=== PATIENT | female | born 1965 | race Caucasian/White ===

== ENCOUNTER 2018-08-13 05:51 | Day surgery (SDC) | payer MEDICARE ==
[2018-08-13] VITALS (7 sets, daily range): BP systolic 100–131; BP diastolic 60–76
[~2018-08-13] VITALS: Ht 160 cm; Wt 76.2 kg
[~2018-08-13 05:51] MED LIST: ALBU83IN INH; ASPI81TA85 PO; ATOR1TAB21 PO; BUPR150T3 PO; BUSP15TA47 PO; COMBAER6 INH; CYCL10TA PO; GABA600T4 PO; IMIT50TA PO; NITR0.4S14 SL; NORV5TAB PO; OMEP40CA2 PO; OXYC10TA3 PO; ZONI25CA2 PO
[2018-08-13] MEDS ORDERED: LIDOCAINE 1% MDV 20ML VIAL SQ PRN (06:00)
[2018-08-13] MEDS ORDERED: LR 1,000 ML IV ONE (06:15)
[2018-08-13] MEDS ORDERED: SCOPOLAMINE 1MG TRANSDERMAL PATCH TOP ONE (07:15)
[2018-08-13] MEDS ORDERED: ROCURONIUM BROMIDE 50 MG/5 ML VIAL As Ordered ONE ×2 (07:17→08:47)
[2018-08-13] MEDS ORDERED: LIDOCAINE 2% INJ 100 MG/5 ML SDV (FOR ANES.) As Ordered ONE ×2 (07:17→09:56)
[2018-08-13] MEDS ORDERED: PROPOFOL 200 MG/20 ML VIAL As Ordered ONE ×4 (07:17→10:58)
[2018-08-13] MEDS ORDERED: BACITRACIN PWD 50,000 UNITS VIAL As Ordered ONE (07:18)
[2018-08-13] MEDS ORDERED: MIDAZOLAM INJ 2 MG/2 ML VIAL (J2250) As Ordered ONE (07:18)
[2018-08-13] MEDS ORDERED: fentaNYL 100 MCG/2 ML INJECTION (J3010) As Ordered ONE ×4 (07:18→11:51)
[2018-08-13] MEDS ORDERED: dexameTHASONE 4 MG/ML 1ML VIAL (J1100) As Ordered ONE ×2 (07:18→07:58)
[2018-08-13] MEDS ORDERED: METOCLOPRAMIDE INJ 10MG/2ML VIAL (J2765) As Ordered ONE (07:58)
[2018-08-13] MEDS ORDERED: BUPIVACAINE LIPOSOME/PF 1.3% 20ML VIAL (13.3MG/ML)(EXPAREL)(C9290 PER1MG) As Ordered ONE (08:58)
[2018-08-13] MEDS ORDERED: ACETAMINOPHEN 1000MG 100ML IV BTL (OFIRMEV) (J0131 PER 10MG) As Ordered ONE (09:56)
[2018-08-13] MEDS ORDERED: KETOROLAC 60 MG/2 ML VIAL (J1885) As Ordered ONE (09:56)
[2018-08-13] MEDS ORDERED: ONDANSETRON 4MG/2ML VIAL (J2405) As Ordered ONE (10:00)
[2018-08-13] MEDS ORDERED: SUGAMMADEX SODIUM 500 MG/5 ML VIAL (BRIDION) As Ordered ONE (10:04)
--- NOTE | 2018-08-13 11:13 | POST-OPPD ---
Postoperative Procedure Note Date Of Procedure: Aug 13, 2018 PREOPERATIVE DIAGNOSIS: Symptomatic macromastia POSTOPERATIVE DIAGNOSIS: same FINDINGS: Large breasts PROCEDURE: Bilateral breast reduction SURGEON: Dr Haji ANESTHESIA: General SPECIMENS: Right breast 456gm, left breast 406gm ESTIMATED BLOOD LOSS: 100cc REPLACED: none DRAINS: 10 mm BETSY drains x 2 COMPLICATIONS: none POSTOPERATIVE CONDITION: stable Dict: [id number] RASTA HAJI DO Aug 13, 2018 11:13
[2018-08-13] MEDS ORDERED: PERCOCET 5MG/325MG TAB As Ordered ONE (11:51)
[2018-08-13] MEDS: fentaNYL 100 MCG/2 ML INJECTION (J3010) IV PRN ×4 (11:55→12:27)
[2018-08-13] MEDS: PERCOCET 5MG/325MG TAB PO PRN ×2 (11:55→22:57)
[2018-08-13] MEDS ORDERED: ONDANSETRON 4MG/2ML VIAL (J2405) IV PRN ×2 (12:00→12:45)
[2018-08-13] MEDS ORDERED: NORCO, ANEXSIA 5/325MG TABLET (HYDROcodone/ACETAMINOPHEN) PO PRN (12:00)
[2018-08-13] MEDS ORDERED: LR 1,000 ML IV SCH (12:00)
[2018-08-13] MEDS ORDERED: MORPHINE 4 MG/ML 1ML VIAL/SYRINGE (J2270) IV PRN (12:45)
[2018-08-13] MEDS: LR 1,000 ML IV SCH ×2 (13:30→22:57)
[2018-08-13] MEDS ORDERED: ZONISAMIDE 50 MG CAP (ZONEGRAN) PO SCH (21:00)
[2018-08-14 02:00] VITALS: BP 99/61
[2018-08-14] MEDS: PERCOCET 5MG/325MG TAB PO PRN (05:32)
[2018-08-14 06:00] VITALS: BP 103/66
--- NOTE | 2018-08-14 08:49 | IPNPDOC ---
Subjective General Date/Time Seen The patient was seen on 08/14/18 at 08:45. Subject Chief Complaint/History The patient is a 53-year-old female admitted with a reason for visit of Bilateral Breast Hypertrophy. POD 1. Doing well, pain controlled. No complains. No nausea, vomiting. Tolerating diet. Current Medications Current Medications Current Medications Acetaminophen/ Hydrocodone Bitart (Sorrento, Anexsia 5/325) 1 tab ASDIRECTED PRN PO MILD/MODERATE PAIN (PS 1-7); Start 08/13/18 at 12:00; Stop 08/13/18 at 13:00; Status DC Amlodipine Besylate (Norvasc) 5 mg DAILY PO ; Start 08/14/18 at 09:00 Fentanyl Citrate (Sublimaze) 25 mcg Q5MP PRN IV MODERATE PAIN (PS 4-7) Last administered on 08/13/18at 12:27; Start 08/13/18 at 12:00; Stop 08/13/18 at 12:28; Status DC Lactated Ringer's 1,000 ml @ 75 mls/hr [id number] IV ; Start 08/13/18 at 12:00; Stop 08/13/18 at 13:00; Status DC Lactated Ringer's 1,000 ml @ 75 mls/hr [id number] IV Last administered on 08/13/18at 22:57; Start 08/13/18 at 12:30 Lidocaine HCl (LIDOCAINE 1% MDV 20ml) 0.1 ml ONCE PRN SQ DISCOMFORT BEFORE IV START; Start 08/13/18 at 06:00; Stop 08/13/18 at 11:56; Status DC Morphine Sulfate (Morphine Sulfate Inj) 4 mg Q4HP PRN IV SEVERE PAIN Last administered on 08/13/18at 17:13; Start 08/13/18 at 12:45 Ondansetron HCl (ZOFRAN INJection) 4 mg Q4HP PRN IV NAUSEA OR VOMITING; Start 08/13/18 at 12:00; Stop 08/13/18 at 13:00; Status DC Ondansetron HCl (ZOFRAN INJection) 4 mg Q4HP PRN IV NAUSEA OR VOMITING; Start 08/13/18 at 12:45 Oxycodone/ Acetaminophen (Percocet 5mg/ 325mg Tablet) 2 tab Q6HP PRN PO MILD PAIN Last administered on 08/14/18at 05:32; Start 08/13/18 at 12:30 Zonisamide (Zonegran) 50 mg BID PO Last administered on 08/13/18at 19:57; Start 08/13/18 at 21:00 Allergies Coded Allergies: baclofen (Verified Allergy, Severe, tongue swelling, 08/07/18) Objective Physical Examination Examination GENERAL APPEARANCE:Patient seen, laying in bed, awake, alert, and oriented. Comfortable, in no acute distress. SKIN: Warm and moist. Breast: soft NT. Post op ecchymosis, non expanding. Incisions intact. BETSY drains serosanguinous. HEENT: Normocephalic, atraumatic. Omega palpebral conjunctiva, anicteric sclerae. Lips and mucosa appear moist. NECK: Supple, no thyromegaly. No obvious jugular venous distention. LUNGS: Clear to auscultation bilaterally. No wheezing appreciated. Vital Signs Vital Signs Date Time Temp Pulse Resp B/P (MAP) Pulse Ox O2 Delivery O2 Flow Rate FiO2 08/14/18 06:02 18 08/14/18 06:00 98.1 103/66 (78) 08/14/18 02:00 82 97 I&Os I&O- Last 24 Hours up to 6 AM 08/14/18 06:00 Intake Total 5600 ml Output Total 2157 ml Balance 3443 ml Impression Symptomatic macromastia. S/p BBR. Doing well Pain controlled Stable for discharge Instructions given, dressing changed Keep bra on. Monitor BETSY drains. F/up plastic surgery Friday Plan / VTE VTE Prophylaxis Ordered?: Yes RASTA HAJI DO Aug 14, 2018 08:49
[2018-08-14] MEDS ORDERED: PERCOCET PO (08:56)
[2018-08-14] MEDS ORDERED: amLODIPine 5 MG TAB PO SCH (09:00)
--- NOTE | 2018-08-15 09:56 | RO ---
DATE OF PROCEDURE: 08/13/2018 PREPROCEDURE DIAGNOSIS: Symptomatic macromastia POSTPROCEDURE DIAGNOSIS: Symptomatic macromastia. PROCEDURE: Bilateral breast reduction. SURGEON: Alaina Fischer DO ANESTHESIA: General. SPECIMENS SENT: Right breast 456 grams, left breast 406 grams. BLOOD LOSS: 100 mL. Two 10 mm Yohannes-Messer drains. INDICATIONS AND DESCRIPTION OF PROCEDURE: This is a 53-year-old female who was seen in our office with upper and middle back pain. The patient is a pain management patient who is having chronic back changes and back pain. She is here to have her breasts reduced. The lift test is revealing improvement with upper back pain when she lifts her breasts, so she is scheduled for bilateral breast reduction. All the risks and benefits and alternatives discussed with the patient at length, and she is ready to proceed. On the day of surgery, she was marked in the upright position. Her nipple areolar complex to the sternal notch on the left is 32, on the right is 30. Left feels less full but bigger in size breast and the right is more dense. The new inframammary place is going to be at 21 cm from sternal notch. Then, the patient was brought into the operating room, placed in supine position. Preoperative antibiotics were given. Sequentials placed on the lower calves and general anesthesia was induced. She was prepped and draped in the usual sterile fashion. We started the procedure on the right side. The nipple areolar complex was outlined at 45 mm in diameter and then incision was carried out using 10 blade. The pedicle is designed along superomedial pattern so the inferolateral portion of the breast was resected using electrocautery. Hemostasis was obtained as we went along. Then, the pedicle was de-epithelialized using Bower scissors, and then it was turned superiorly to its new location with the nipple areolar complex at 21 cm from sternal notch. The new mound was recreated. The pillars were closed in layers, and the mound was reinforced with #0 Vicryl sutures. The vertical limb is at 8 cm. Excess tissue was then measured and resected creating horizontal scar, which was continuously closed with interrupted #3-0 Monocryl sutures inverted. 10 mm Yohannes-Messer drain was placed through the lateral portion of this horizontal incision and sutured in place. Nipple areolar complex was set in with layered closures of #3-0 Monocryl and #4-0 Monocryl sutures and a running #5-0 plain gut suture. Then, we turned our attention to the left side. Left breast slightly larger but less dense. Again, the nipple areolar complex was outlined at 45 mm in diameter and then resection started along the superomedial pedicle pattern. Inferolateral portion of the breast was resected using electrocautery. Hemostasis was obtained. The pedicle was de-epithelialized using Bower scissors and then turned superiorly to its new location at 21 cm from the sternal notch. The mound was re-created and pillars were started to close with #3-0 Monocryl sutures. The mound was reinforced with #0 Vicryl sutures as well, and the vertical limb of the pillar was 8 cm mirroring the right side, and excess tissue was measured and resected creating the horizontal incision. 10 mm Yohannes-Messer drain was placed through the lateral portion of that horizontal incision, sutured in place. Nipple areolar complex was fit in in layers with #3-0 and #4-0 Monocryl sutures as well as the running #5-0 plain. Total 15 cc of Exparel used for pain management. Good symmetry was achieved and Prineo dressing was applied to the vertical and horizontal incisions, and Xeroform was applied to nipple areolar complex with bulky dressing and a surgical support bra. The patient was extubated in the operating room without any difficulties, transferred to the recovery room in stable condition. KENNETH
== END 2018-08-14 09:55 | disposition home or self-care (01) ==
LOC: M SDC 05:51 → M MS5PR 13:25 → M SDC 08-14 09:55
PROVIDERS: ATTEND Plastic Surgery Surgery of the Hand
DX: N62 Hypertrophy of breast (principal); M54.2 Cervicalgia; M54.5 Low back pain; F17.210 Nicotine dependence, cigarettes, uncomplicated; F32.9 Major depressive disorder, single episode, unspecified; F41.9 Anxiety disorder, unspecified; I10 Essential (primary) hypertension; K21.9 Gastro-esophageal reflux disease without esophagitis; J45.909 Unspecified asthma, uncomplicated; Z79.51 Long term (current) use of inhaled steroids; Z79.82 Long term (current) use of aspirin; Z79.899 Other long term (current) drug therapy
CPT/HCPCS: 19318; 88305; 96374; C9290; G0378; J0131; J0690; J1100; J1885; J2250; J2270; J2405; J2765; J3010

== ENCOUNTER → 2019-06-23 | Outpatient (CLI) | payer MEDICARE ==
[~2019-06-23] MED LIST changes: +CYCL-707 PO; -CYCL10TA PO; -OMEP40CA2 PO; +OMEP40CA97 PO; +PERCOCET PO; +ZONI25CA13 PO; -ZONI25CA2 PO
== END ==
LOC: M LABSMTC 13:42
PROVIDERS: ATTEND Family Medicine
DX: Z11.59 Encounter for screening for other viral diseases (principal); Z20.828 Contact with and (suspected) exposure to other viral communicable diseases

== ENCOUNTER → 2022-10-24 | Outpatient (CLI) | payer MEDICAID, MEDICARE ==
[~2022-10-24] MED LIST changes: +ALBU2.5V10 INH; -ALBU83IN INH; -ASPI81TA85 PO; +ASPI81TA86 PO; +BUPR150T12 PO; -BUPR150T3 PO; +OMEP40CA4 PO; -OMEP40CA97 PO
== END ==
LOC: M PLAIMG 15:48
PROVIDERS: ATTEND Pain Medicine Interventional Pain Medicine
DX: M54.16 Radiculopathy, lumbar region (principal); M51.27 Other intervertebral disc displacement, lumbosacral region

== ENCOUNTER → 2023-01-01 | Outpatient (CLI) | payer MEDICARE | LOC: M PLAIMG 08:26 | PROVIDERS: ATTEND Physician Assistant Medical | DX: R22.1 Localized swelling, mass and lump, neck (principal) ==

== ENCOUNTER → 2023-01-30 | Outpatient (CLI) | payer MEDICARE ==
[~2023-01-30] MED LIST changes: +ISOVUE-370 76% 100ML VIAL ONE
== END ==
LOC: M PLAIMG 10:00
PROVIDERS: ATTEND Family Medicine
DX: R91.1 Solitary pulmonary nodule (principal)
CPT/HCPCS: 71270; Q9967

== ENCOUNTER → 2023-08-12 | Outpatient (REF) | payer MEDICARE ==
[~2023-08-12] MED LIST changes: -ISOVUE-370 76% 100ML VIAL ONE
[2023-08-12 14:19] LABS: C REACTIVE PROTEIN QUANTITATIV < 0.40 MG/DL (<1.0)
[2023-08-12 14:20] LABS: RHEUMATOID FACTOR QUANT 5.2 IU/ML (<14)
[2023-08-13 18:07] LABS: ANA PATTERN Nuclear, Speckled (NEGATIVE); ANA SCREEN, IFA POSITIVE (NEGATIVE); ANA TITER 1:40 titer (<1:40)
[2023-08-13 23:32] LABS: RNP ANTIBODY <1.0 NEG AI (<1.0 NEG); SM ANTIBODY <1.0 NEG AI (<1.0 NEG); SSA SJOGRENS A <1.0 NEG AI (<1.0 NEG); SSB SJOGRENS B <1.0 NEG AI (<1.0 NEG)
[2023-08-16 00:08] LABS: CYCLIC CITRULLINATED PEPTIDE < 16 UNITS (<20)
== END ==
LOC: M LABDRWAD 12:36
PROVIDERS: ATTEND Internal Medicine Pulmonary Disease
DX: R91.8 Other nonspecific abnormal finding of lung field (principal)

== ENCOUNTER → 2023-08-27 | Outpatient (CLI) | payer OTHER | LOC: M RAD 10:26 | PROVIDERS: ATTEND Internal Medicine Pulmonary Disease | DX: R91.8 Other nonspecific abnormal finding of lung field (principal) ==

== ENCOUNTER → 2024-03-23 | Outpatient (CLI) | payer MEDICARE, MEDICAID ==
[~2024-03-23] MED LIST changes: +GABA-1490 PO; -GABA600T4 PO
== END ==
LOC: M PLAIMG 12:01
PROVIDERS: ATTEND Internal Medicine Pulmonary Disease
DX: R91.8 Other nonspecific abnormal finding of lung field (principal)

== ENCOUNTER → 2024-03-24 | Outpatient (CLI) | payer MEDICARE, MEDICAID | LOC: M RAD 16:02 | PROVIDERS: ATTEND Nurse Practitioner Family | DX: I67.1 Cerebral aneurysm, nonruptured (principal); V87.8XXD Person injured in other specified noncollision transport accidents involving motor vehicle (traffic), subsequent encounter; R51.9 Headache, unspecified; Z98.890 Other specified postprocedural states; Y99.9 Unspecified external cause status ==

== ENCOUNTER → 2024-04-19 | Outpatient (CLI) | payer OTHER | LOC: M PLAIMG 09:40 | PROVIDERS: ATTEND Physical Medicine & Rehabilitation Pain Medicine | DX: M50.30 Other cervical disc degeneration, unspecified cervical region (principal) ==

== ENCOUNTER → 2024-05-19 | Outpatient (CLI) | payer OTHER | LOC: M PLAIMG 12:53 | PROVIDERS: ATTEND Physical Medicine & Rehabilitation Pain Medicine | DX: M75.41 Impingement syndrome of right shoulder (principal) ==

== ENCOUNTER → 2025-01-24 | Outpatient (CLI) | payer MEDICARE | LOC: M RAD 11:53 | PROVIDERS: ATTEND Nurse Practitioner Family | DX: Z98.890 Other specified postprocedural states (principal); I67.1 Cerebral aneurysm, nonruptured ==